=== PATIENT | female | born 1950 | race Caucasian/White ===

== ENCOUNTER 2022-03-13 11:19 | Outpatient (CLI) | payer MEDICARE, BC, SELFPAY ==
[2022-03-13 17:27] LABS: SARS PCR* Negative SARS-CoV-2 (Negative)
== END 2022-03-13 11:20 | disposition home or self-care (01) ==
LOC: KYNREF 11:20
PROVIDERS: PCP Nurse Practitioner Family; Visit Provider Nurse Practitioner Family
DX: Z20.822 Contact with and (suspected) exposure to COVID-19 (principal)
CPT/HCPCS: 87635

== ENCOUNTER 2022-09-18 10:23 | Outpatient (CLI) | payer MEDICARE, BC, SELFPAY ==
[2022-09-18 13:39] LABS: Basophils Absolute Auto 0.02 K/uL (0.00-0.30); Basophils Percent Auto 0.2 % (0.0-3.0); Eosinophils Absolute Auto 0.01 K/uL (0.00-0.50); Eosinophils Percent Auto 0.1 % (0.0-7.0); Hemoglobin* 14.8 gm/dL (12.0-16.0); Immature Granulocytes Abs Auto 0.01 K/uL (0.00-0.30); Immature Granulocytes Pct Auto 0.1 %; Lymphocytes Percent Auto 13.6 % (20-44); Mean Corpuscular HGB Conc 34 gm/dL (32-36); Mean Corpuscular Hemoglobin 31 pg (26-34); Mean Corpuscular Volume 93 fL (80-100); Monocytes Percent Auto 11.4 % (0.0-11.0); Neutrophils Percent Auto 74.6 % (42.0-72.0); Platelet Count* 251 K/uL (140-440); RDW Coefficient of Variation % 12.2 % (11.5-15.5); Red Blood Count 4.73 m/uL (4.00-5.20); White Blood Count* 8.78 K/uL (4.50-11.00)
[2022-09-18 13:45] LABS: Slide Review Reflex No
== END 2022-09-18 10:24 | disposition home or self-care (01) ==
LOC: KYNREF 10:24
PROVIDERS: PCP Nurse Practitioner Family; Visit Provider Nurse Practitioner Family
DX: R05.8 Other specified cough (principal); I10 Essential (primary) hypertension; J32.9 Chronic sinusitis, unspecified
CPT/HCPCS: 85025

== ENCOUNTER 2022-10-10 10:23 | Outpatient (CLI) | payer MEDICARE, BC, SELFPAY ==
[2022-10-10 13:44] LABS: Chloride* 89 mmol/L (96-114); Potassium* 4.2 mmol/L (3.6-5.1); Sodium* 128 mmol/L (135-149)
[2022-10-10 13:47] LABS: Creatinine* 0.7 mg/dL (0.5-1.5); Estimated Glomerular Filt Rate 91 ml/min
[2022-10-10 13:48] LABS: Blood Urea Nitrogen* 12 mg/dL (7-30); Calcium* 9.4 mg/dL (8.4-10.6); Carbon Dioxide* 32 mmol/L (20-32); Glucose* 87 mg/dL (60-115)
== END 2022-10-10 10:24 | disposition home or self-care (01) ==
LOC: KYNREF 10:24
PROVIDERS: PCP Nurse Practitioner Family; Visit Provider Nurse Practitioner Family
DX: I10 Essential (primary) hypertension (principal)
CPT/HCPCS: 80048

== ENCOUNTER 2022-10-30 10:27 | Outpatient (CLI) | payer MEDICARE, BC, SELFPAY ==
[2022-10-30 13:39] LABS: Chloride* 90 mmol/L (96-114); Potassium* 3.8 mmol/L (3.6-5.1); Sodium* 129 mmol/L (135-149)
[2022-10-30 13:42] LABS: Blood Urea Nitrogen* 11 mg/dL (7-30); Carbon Dioxide* 33 mmol/L (20-32); Creatinine* 0.7 mg/dL (0.5-1.5); Estimated Glomerular Filt Rate 91 ml/min; Glucose* 83 mg/dL (60-115)
[2022-10-30 13:43] LABS: Calcium* 9.3 mg/dL (8.4-10.6)
== END 2022-10-30 10:28 | disposition home or self-care (01) ==
PROVIDERS: PCP Nurse Practitioner Family; Visit Provider Nurse Practitioner Family
DX: I10 Essential (primary) hypertension (principal)
CPT/HCPCS: 80048

== ENCOUNTER 2023-03-29 11:33 | Outpatient (CLI) | payer MEDICARE, BC, SELFPAY | END 2023-03-29 11:34 | disposition home or self-care (01) | PROVIDERS: PCP Nurse Practitioner Family; Visit Provider Nurse Practitioner Family | DX: I10 Essential (primary) hypertension (principal); E87.1 Hypo-osmolality and hyponatremia; R55 Syncope and collapse | CPT/HCPCS: 80048; 84484 ==

== ENCOUNTER 2023-05-18 10:25 | Outpatient (CLI) | payer MEDICARE, BC, SELFPAY | END 2023-05-18 10:26 | disposition home or self-care (01) | PROVIDERS: PCP Nurse Practitioner Family; Visit Provider Nurse Practitioner Family | DX: R11.0 Nausea (principal); R10.13 Epigastric pain; I10 Essential (primary) hypertension | CPT/HCPCS: 80053; 81015; 82150; 83690; 85025 ==

== ENCOUNTER 2023-08-24 11:24 | Outpatient (CLI) | payer MEDICARE, BC, SELFPAY ==
[2023-08-24 16:01] LABS: SARS PCR* Negative SARS-CoV-2 (Negative)
== END 2023-08-24 11:25 | disposition home or self-care (01) ==
PROVIDERS: PCP Nurse Practitioner Family; Visit Provider Nurse Practitioner Family
DX: R05.8 Other specified cough (principal); J10.1 Influenza due to other identified influenza virus with other respiratory manifestations; R06.02 Shortness of breath
CPT/HCPCS: 83880; 85025; 87635

== ENCOUNTER 2024-05-26 10:22 | Outpatient (CLI) | payer MEDICARE, BC, SELFPAY | END 2024-05-26 10:23 | disposition home or self-care (01) | PROVIDERS: PCP Nurse Practitioner Family; Visit Provider Nurse Practitioner Family | DX: E78.5 Hyperlipidemia, unspecified (principal); I10 Essential (primary) hypertension; R55 Syncope and collapse | CPT/HCPCS: 80053; 80061; 84484; 85025 ==

== ENCOUNTER 2025-05-29 08:43 | Outpatient (CLI) | payer MEDICARE, BC, SELFPAY | END 2025-05-29 08:44 | disposition home or self-care (01) | PROVIDERS: PCP Nurse Practitioner Family; Visit Provider Nurse Practitioner Family | DX: E78.5 Hyperlipidemia, unspecified (principal); I10 Essential (primary) hypertension; Z13.0 Encounter for screening for diseases of the blood and blood-forming organs and certain disorders involving the immune mechanism | CPT/HCPCS: 80053; 80061; 85025 ==